=== PATIENT | female | born 1950 | race Caucasian/White ===

== ENCOUNTER 2022-04-13 13:47 | Inpatient (IN) | payer MEDICARE, BC ==
[2022-04-13] VITALS (11 sets, daily range): BP systolic 100–170; BP diastolic 59–111; PULSE 76–86; TEMP 98.3–99
[~2022-04-13] VITALS: Ht 160 cm; Wt 69.9 kg
[2022-04-13] MEDS ORDERED: OMEGA-3 1000 MG1 CAP PO (14:13)
[2022-04-13] MEDS ORDERED: MASON NATURAL2000 IU PO (14:14)
[2022-04-13] MEDS ORDERED: ZYRTEC5 MG PO (14:14)
[2022-04-13] MEDS ORDERED: ALEVE 220MG220 MG PO (14:15)
[2022-04-13] MEDS ORDERED: MIRALAX PA17 GM/Dose PO (14:15)
--- NOTE | 2022-04-13 14:33 | NUR ---
CALLED ORTHO CONSULT TO KHADIJAH GIANG FOR DR. BECERRIL.
[2022-04-13 15:13] LABS: COLLECTION METHOD CATHETER
[2022-04-13 15:17] LABS: BASO % 0.4 % (0.0-2.0); EOS # 0.5 K/mm3 (0.0-0.7); GRAN # 5.9 K/mm3 (1.4-6.5); GRAN % 75.4 % (42.2-75.2); HEMATOCRIT 39.4 % (37.0-47.0); HEMOGLOBIN 12.6 g/dl (12.5-16.0); LYMPH # 0.9 K/mm3 (1.2-3.4); LYMPH % 11.8 % (20.0-51.0); MEAN CELL VOLUME 86 fl (80.0-100.0); MEAN CORPUSCULAR HEMOGLOBIN 27 pg (27-31); MEAN CORPUSCULAR HGB CONC 32 g/dl (33.0-37.0); MEAN PLATELET VOLUME 11.1 fl (7.4-10.4); MONO # 0.5 K/mm3 (0.1-0.6); MONO % 6.1 % (1.7-9.3); PLATELET COUNT 202 K/mm3 (130-400); RED BLOOD COUNT 4.61 M/mm3 (4.10-5.30)
[2022-04-13 15:24] LABS: SQUAMOUS EPITHELIAL None Seen /hpf (0-10); URINE BACTERIA None Seen /hpf (NONE SEEN); URINE RBC 0-2 /hpf (0-2)
[2022-04-13 15:25] LABS: URINE APPEARANCE Clear (CLEAR/HAZY); URINE COLOR Yellow (YELLOW)
[2022-04-13 15:26] LABS: URINE BLOOD TRACE-INTACT (NEGATIVE); URINE GLUCOSE Negative (NEGATIVE); URINE KETONE TRACE (NEGATIVE); URINE NITRATE Negative (NEGATIVE); URINE PROTEIN(semi-quant) Negative (NEGATIVE); URINE UROBILINOGEN 0.2 (NEGATIVE)
[2022-04-13 15:36] LABS: ALBUMIN 3.7 gm/dL (3.4-4.8); BILIRUBIN,TOTAL 0.6 mg/dL (0.2-1.2); CALCIUM 9.7 mg/dL (8.4-10.2); CREATININE, serum 0.75 mg/dL (0.57-1.11); POTASSIUM 4.1 mmol/L (3.5-4.5)
--- NOTE | 2022-04-13 16:58 | NUR ---
pt cleared for surgery and left floor @1610. Iv started to left ac 20 ga. LR to gravity per orders. Admission assessments complete, Cortes catheter to dd.
--- NOTE | 2022-04-14 01:42 | NUR ---
SHIFT REPORT FROM ALICIA TRACEY. PATIENT IN BED ON ROOM ENTRY. HAD COME UP FROM OR JUST BEFORE SHIFT CHANGE. ALERT AND ORIENTED. POST OP VITALS IN PLACE. DENIES PAIN. HS MEDS PER EMAR. TOLERATED CLEAR LIQUID TRAY. DRINKING LOTS OF WATER. R FEMUR DRESSING WITH GAUZE AND TEGADERM. PATIENT C/O NOT BEING ABLE TO SLEEP ON HER BACK AND HER BACK HURTING, PATIENT IN AGREEANCE TO TRY A LIOR AND MELATONIN TONIGHT. DENIES ADDITIONAL NEEDS.
[2022-04-14 03:23] VITALS: BP 147/65; PULSE 75; TEMP 97.6
[2022-04-14 06:49] LABS: MEAN CELL VOLUME 86 fl (80.0-100.0); MEAN CORPUSCULAR HGB CONC 32 g/dl (33.0-37.0); MEAN PLATELET VOLUME 11.5 fl (7.4-10.4); PLATELET COUNT 194 K/mm3 (130-400); RED BLOOD COUNT 3.83 M/mm3 (4.10-5.30); REDCELL DISTRIBUTION WIDTH-CV 12.8 % (11.5-14.5)
[2022-04-14 06:54] LABS: HEMATOCRIT 32.9 % (37.0-47.0); HEMOGLOBIN 10.6 g/dl (12.5-16.0); MEAN CORPUSCULAR HEMOGLOBIN 28 pg (27-31)
[2022-04-14 07:11] LABS: CALCIUM 8.7 mg/dL (8.4-10.2); CREATININE, serum 0.73 mg/dL (0.57-1.11); POTASSIUM 3.9 mmol/L (3.5-4.5)
[2022-04-14 08:02] LABS: BAND 2 % (0-10); LYMPHOCYTE 10 % (20.0-51.0); NEUTROPHILS 87 % (42.0-75.2); PLATELET ESTIMATE NORMAL (NORMAL)
--- NOTE | 2022-04-14 10:41 | NUR ---
Patient admitted to the Surgical Unit on 04-13-22. Machine Puller Over met with Patient at bedside to conduct Care Managment infake and discuss discharge planning. Patient verrified that she lives [place], [place] with her , Winston P:[phone]. PAtient reports her PCP is PADMAJA Strong in [place], [place]. Patient states that she has [employer] in addition to [employer]. PAtient denies the use of O2 and MDE at home, and that she is independent with ADLs/IADLs prior to the injury that she presented for admisson. SW contacted Winston to initiate Familial calabotation and coordination. Winston reports that he can provide transportation to outpatiant services if that is what is selected by the Patient.
--- NOTE | 2022-04-14 11:33 | NUR ---
Initial visit: Pt was resting and content in her chair. Son was in the room. Pt has no needs right now. Pharmacist Critical Care will follow up as needed.
[2022-04-14 12:44] VITALS: BP 134/54; PULSE 81; TEMP 98
--- NOTE | 2022-04-14 15:26 | NUR ---
[facility] Tube Room met with Patient at bedside to follow-up on home health and outpatient PT. Patient reported that she would like to schedule outpatiant PT in [place], [place] herself.
[2022-04-14 19:28] VITALS: BP 153/66; PULSE 88; TEMP 98.5
--- NOTE | 2022-04-14 20:19 | NUR ---
SHIFT REPORT FROM RICHARD TRACEY. PATIENT IN BED ON ROOM ENTRY. ALERT AND ORIENTED. HS MEDS PER EMAR. DENIES PAIN. R HIP AQUACELL CDI. L AC INT PATENT AND FLUSHED. DENIES ADDITIONAL NEEDS AT THIS TIME.
[2022-04-14 23:34] VITALS: BP 143/62; PULSE 80; TEMP 97.9
[2022-04-15 03:47] VITALS: BP 119/48; PULSE 74; TEMP 97.8
[2022-04-15 06:40] LABS: BASO % 0.3 % (0.0-2.0); EOS # 0.3 K/mm3 (0.0-0.7); EOS % 3.3 % (0.0-4.0); GRAN # 6.8 K/mm3 (1.4-6.5); GRAN % 74.2 % (42.2-75.2); LYMPH # 1.4 K/mm3 (1.2-3.4); LYMPH % 15.6 % (20.0-51.0); MEAN CELL VOLUME 86 fl (80.0-100.0); MEAN CORPUSCULAR HGB CONC 33 g/dl (33.0-37.0); MEAN PLATELET VOLUME 11.6 fl (7.4-10.4); MONO # 0.6 K/mm3 (0.1-0.6); MONO % 6.2 % (1.7-9.3); PLATELET COUNT 193 K/mm3 (130-400); RED BLOOD COUNT 3.53 M/mm3 (4.10-5.30); REDCELL DISTRIBUTION WIDTH-CV 13.2 % (11.5-14.5)
[2022-04-15 06:43] LABS: HEMATOCRIT 30.2 % (37.0-47.0); HEMOGLOBIN 9.8 g/dl (12.5-16.0); MEAN CORPUSCULAR HEMOGLOBIN 28 pg (27-31)
[2022-04-15 06:57] LABS: CALCIUM 8.7 mg/dL (8.4-10.2); CREATININE, serum 0.83 mg/dL (0.57-1.11); POTASSIUM 4.1 mmol/L (3.5-4.5)
[2022-04-15] MEDS ORDERED: ASPI325T6 PO (07:18)
[2022-04-15] MEDS ORDERED: VITAMIN C500 MG PO (07:19)
[2022-04-15] MEDS ORDERED: COLACE 100100 MG/CAP PO (07:19)
[2022-04-15] MEDS ORDERED: DUO-KAPS1 CAP PO (07:19)
[2022-04-15 07:38] VITALS: BP 132/61; PULSE 75; TEMP 97.7
--- NOTE | 2022-04-15 08:00 | NUR ---
Pt doing well, stand by assist using a walker. Pain tolerable even with ambulation. Drsg to right hip is gauze with tegaderm which is CDI. Discussed pt getting a shower before leaving. Pt has ordered breakfast, no other needs, will continue to monitor
[2022-04-15] MEDS ORDERED: TYLENOL 500MG500 MG PO (08:18)
--- NOTE | 2022-04-15 09:28 | NUR ---
The clinical team is ready to discharge the patient today. MANAS met with the patient to review discharge plan. The patient confirms that she will be contacting [facility] to schedule her outpatient therapy appointments. PT is recommending a FWW. MANAS addressed this with the patient. The patient reports that she does not have a FWW and needs to get one. MANAS informed her how her Medicare would cover a FWW and we could order one for her. The patient states that she plans to either purchase or rent a FWW from [employer]. She declined having SW order one. She had no questions or concerns for SW. The patient is to discharge back home with her today, 04/15, with outpatient PT/OT. No additional needs at this time.
[2022-04-15 11:37] VITALS: BP 148/60; PULSE 70; TEMP 97.6
--- NOTE | 2022-04-15 11:45 | NUR ---
Pt has showered, drsg to right hip changed. New gauze and tegaderm applied. Informed pt to notify nursing when she is ready to be wheeled out
--- NOTE | 2022-04-15 11:47 | NUR ---
Reviewed discharge instructions with pt as well as the follow up appointment, prescriptions and the therapy script. Pt wanted to schedule the therapy her self. Pt did just shower. Informed her to notify nursing when her ride arrives
--- NOTE | 2022-04-15 12:28 | NUR ---
Pt escorted out at this time
== END 2022-04-15 12:28 | disposition home or self-care (01) | DRG 482 ==
LOC: SURG 13:47
PROVIDERS: Internal Medicine; Orthopaedic Surgery; Physician Assistant; ADMIT Internal Medicine
PROC: 0QS634Z Reposition Right Upper Femur with Internal Fixation Device, Percutaneous Approach (ICD-10-PCS; principal; 2022-04-13 17:00)
DX: S72.001A Fracture of unspecified part of neck of right femur, initial encounter for closed fracture (principal); W18.39XA Other fall on same level, initial encounter; E78.5 Hyperlipidemia, unspecified; G47.33 Obstructive sleep apnea (adult) (pediatric); F10.90 Alcohol use, unspecified, uncomplicated; M81.0 Age-related osteoporosis without current pathological fracture; K21.9 Gastro-esophageal reflux disease without esophagitis; D64.9 Anemia, unspecified; K59.09 Other constipation; Y93.89 Activity, other specified; Y92.89 Other specified places as the place of occurrence of the external cause; Z91.041 Radiographic dye allergy status; Z91.040 Latex allergy status; Z91.018 Allergy to other foods; Z90.710 Acquired absence of both cervix and uterus; Z86.16 Personal history of COVID-19; Z23 Encounter for immunization
CPT/HCPCS: A9284; C1713; J0690; J1100; J2250; J2704; J3010; J7121